=== PATIENT | male | born 1950 | race Caucasian/White ===

== ENCOUNTER 2018-03-14 16:45 | Emergency (ER) | payer OTHER ==
[~2018-03-14] VITALS: Ht 188 cm; Wt 81.7 kg
[~2018-03-14 16:45] MED LIST: ALCOH-WIPE1 EACH MC; ASPIRIN325 PO; AUGMENTIN 875875 MG PO; DILANTIN100 MG PO; ELIQUIS5 MG PO; GLUCOTROL5 MG PO; KEPPRA 500 MG500 M1 PO; METER-CHECK1 EACH MC; PREDNISONE 10 M10 MG PO; PRINIVIL20 MG PO; PROZAC10 MG PO; SORINE 80 MG TA80 M1 PO; SOTALOL80 MG PO
[2018-03-14 17:27] LABS: ABSOLUTE EOSINOPHILS 0.1 thou/uL (0.0-0.7); ABSOLUTE LYMPHOCYTES 1.2 thou/uL (0.8-5.3); ABSOLUTE MONOCYTES 0.5 thou/uL (0.0-1.2); ABSOLUTE NEUTROPHILS 3.4 thou/uL (1.6-8.1); BASOPHILS 0.7 %; EOSINOPHILS 1.9 %; HEMOGLOBIN 11.2 gm/dL (14.0-18.0); LYMPHOCYTES 22.6 %; MCH 35.5 pg (26.0-34.0); MCHC 34.9 g/dL (28.0-37.0); MCV 101.9 fL (80.0-100.0); MONOCYTES 9.2 %; NUCLEATED RBCS 0 /100WBC; PLATELET COUNT* 135 thou/uL (150-400); POLYS 65.6 %; RBC 3.14 mil/uL (4.50-6.00); RDW-CV 13.4 % (10.5-14.5); WBC 5.2 thou/uL (4.0-11.0)
[2018-03-14 17:43] LABS: ANION GAP 6 mmol/L (7-16); BUN 22 mg/dL (7-18); CALCIUM 8.5 mg/dL (8.5-10.1); CHLORIDE 101 mmol/L (98-107); CO2 26 mmol/L (21-32); CREATININE 1.2 mg/dL (0.6-1.3); GLUCOSE 79 mg/dL (70-99); POTASSIUM 4.6 mmol/L (3.5-5.1); SODIUM 133 mmol/L (136-145)
[2018-03-14 17:49] LABS: ALBUMIN 3.2 g/dL (3.4-5.0); ALKALINE PHOSPHATASE 49 U/L (46-116); SGOT 26 U/L (15-37); SGPT 39 U/L (30-65); TOTAL BILIRUBIN 0.4 mg/dL (<0.1-1.0); TOTAL PROTEIN 6.5 g/dL (6.4-8.2); TROPONIN-I LEVEL <0.06 ng/mL (<0.06)
[2018-03-14 17:50] LABS: APTT 25.4 Seconds (25.0-31.3); INR 1.1; PROTIME 10.7 Seconds (9.20-11.50)
[2018-03-14 18:50] VITALS: BP 177/92
--- NOTE | 2018-03-15 11:11 | EKG ---
[place] [address] ELECTROCARDIOGRAM REPORT Name: FEDE LOO Room: [facility]#: [id number] Admission: 03/14/18 Attend Phys: Discharge: 03/14/18 Date of : 54 Report #: [id number] THIS REPORT FOR: //name// [facility] ED Test Date: 2018-03-14 Test Time: 17:21:09 Pat Name: FEDE LOO Department: Room: Gender: M Case Maker: ANDREW : 1950 Requested By: Jerri Steel Order Number: [id number] MD: Joey Wood Measurements Intervals [place] Rate: 75 P: 44 [place]: 220 QRS: -55 QRSD: 91 T: 92 QT: 387 QTc: 433 Interpretive Statements Sinus rhythm Prolonged [place] interval Consider right ventricular hypertrophy Inferior infarct, old Consider anterior infarct Baseline wander in lead(s) V5,V6 Compared to ECG 10/26/2015 08:14:01 First degree AV block now present Left-axis deviation no longer present Poor R-wave progression no longer present Possible ischemia no longer present Myocardial infarct finding still present Electronically Signed On 03-15-2018 11:11:24 CDT by Joey Wood [email or web address] <ELECTRONICALLY SIGNED> By: Henrique Wood MD, [facility] 03/15/18 1111 1721 172 Henrique Wood MD, [facility] /EPI
== END 2018-03-14 18:10 | disposition short-term general hospital (02) ==
LOC: M.ERS 16:45
PROVIDERS: Nurse Practitioner Family
DX: S06.349A Traumatic hemorrhage of right cerebrum with loss of consciousness of unspecified duration, initial encounter (principal); I10 Essential (primary) hypertension; G40.909 Epilepsy, unspecified, not intractable, without status epilepticus; M19.90 Unspecified osteoarthritis, unspecified site; W18.39XA Other fall on same level, initial encounter; Y93.89 Activity, other specified; Y92.89 Other specified places as the place of occurrence of the external cause; Y99.8 Other external cause status